=== PATIENT | male | born 1955 | race Hispanic/Latino ===

== ENCOUNTER 2022-05-12 08:14 | Day surgery (SDC) | payer OTHER ==
[2022-05-12] MEDS ORDERED: Ringers Lactate 1,000 ML IV ONE (08:22)
[2022-05-12 08:25] LABS: Absolute Lymphocytes (CBC) 1.5 K/uL (0.7-4.9); Hematocrit 41.3 % (39.6-49.0); Lymphocytes % 31.4 % (15.3-44.8); MCV 90.5 fL (80-100); MPV 10.3 fL (7.6-11.3); RBC Red Blood Cell Count 4.56 M/uL (4.33-5.43)
--- NOTE | 2022-05-12 08:29 | RAD REPORT ---
EXAM DESCRIPTION: RAD - Chest Pa And Lat (2 Views) - 05/12/2022 8:14 am CLINICAL HISTORY: Pre op pending hernia repair Chest pain. COMPARISON: No comparisons TECHNIQUE: PA and lateral views of the chest were obtained. FINDINGS: The lungs are hyperexpanded compatible with COPD. The heart is upper limit of normal in si ze. No fracture or aggressive bony process. IMPRESSION: COPD without acute process identified. The USPSTF recommends annual screening for lung cancer with low-dose CT (LDCT) in adults aged 50 to 80 years who have a 20 pack-year smoking history and currently smoke or have quit within the past 15 years.
[2022-05-12 08:36] LABS: Potassium 4.3 mmol/L (3.5-5.1)
[2022-05-12 08:37] VITALS: O2SAT 100
[2022-05-12] MEDS ORDERED: propofoL 200 MG/20 ML VIAL IV ONE (08:54)
[2022-05-12] MEDS ORDERED: FENTANYL CITR 100 MCG/2 ML ONE (08:55)
[2022-05-12] MEDS ORDERED: MIDAZOLAM HCL 2 MG/2 ML INJ ONE (08:55)
[2022-05-12] MEDS: CEFAZOLIN SODIUM 1 GM/VIAL ONE ×2 (08:56→09:06)
[2022-05-12] MEDS ORDERED: LIDOCAINE 2% MPF 5 ML VIAL ONE (08:56)
[2022-05-12] MEDS ORDERED: ROCURONIUM 50 MG/5 ML VIAL IV ONE (08:57)
[2022-05-12] MEDS ORDERED: ONDANSETRON 4 MG/2 ML VIAL ONE (08:58)
[2022-05-12] MEDS ORDERED: dexAMETHasone 10 MG/ML VIAL ONE (09:26)
--- NOTE | 2022-05-12 10:04 | P.BOP ---
Preoperative diagnosis: incarcerated tender bilateral inguinal hernia Postoperative diagnosis: same Primary procedure: 1. Laparoscopic repair incarcerated tender right inguinal hernia with mesh Secondary procedure: 2. Laparoscopic repair incarcerated tender left inguinal hernia with mesh Boat Joiner Helper: ROHIT SAMANIEGO (SPA TECHNICIAN) Estimated blood loss: <10cc Specimen: none Findings: as above Anesthesia: General Complications: None Implants: medium 3D mesh bilateral Transferred to: Recovery Room Condition: Good
[2022-05-12] MEDS ORDERED: GLYCOPYRROLATE 0.2 MG/ML SYR ONE (10:09)
[2022-05-12] MEDS ORDERED: NEOSTIGMINE 1 MG/ML -10 ML VIAL ONE (10:10)
[2022-05-12] MEDS ORDERED: KETOROLAC 30 MG/ML INJ ONE (10:13)
[2022-05-12] MEDS: HYDROMORPHONE HCL 1 MG/ML INJ ONE ×7 (10:27→10:52)
[2022-05-12] MEDS ORDERED: HYDROCODONE/APAP 7.5/325 MG TAB ONE (12:02)
[2022-05-12 12:09] VITALS: BP 136/74; TEMP 97
--- NOTE | 2022-05-13 15:35 | EKG ---
Test Date: 2022-05-12 Test Time: 07:58:12 Staffing Manager: ALVINO MEASUREMENT RESULTS: Intervals: Rate: 61 WV: 162 QRSD: 106 QT: 434 QTc: 436 [place]: P: 4 WV: 162 QRS: -50 T: 66 INTERPRETIVE STATEMENTS: Normal sinus rhythm Left anterior fascicular block Nonspecific T wave abnormality Abnormal ECG No previous ECG available for comparison Electronically Signed On 05-13-22 15:32:39 FLAP MAKER by Kvng Gonzalez
== END 2022-05-12 12:32 | disposition home or self-care (01) ==
LOC: PRE 08:14
PROVIDERS: ATTEND Surgery
PROC: 0YUA4JZ Supplement Bilateral Inguinal Region with Synthetic Substitute, Percutaneous Endoscopic Approach (ICD-10-PCS; principal; 2022-05-12 09:45)
DX: K40.00 Bilateral inguinal hernia, with obstruction, without gangrene, not specified as recurrent (principal); I10 Essential (primary) hypertension; F41.9 Anxiety disorder, unspecified
CPT/HCPCS: 93005; 85025; 80048; 36415; 71046; 49650; J2704; J2710; J2001; J2250; J3010; J1100; J1170 ×3; J7120; J2405; J0690